=== PATIENT | male | born 1955 | race Caucasian/White ===

== ENCOUNTER → 2023-06-30 | Outpatient (CLI) | payer MEDICARE, BC ==
--- NOTE | 2023-06-30 14:59 | MR ---
EXAMINATION TYPE: MR Prostate wo/w con DATE OF EXAM: 06/30/2023 10:01 AM COMPARISON: None. CLINICAL INDICATION:Male, 68 years old with history of C61 prostate ca; Prostate cancer. TECHNIQUE: Multi-planar, multi-sequence imaging of the pelvis is performed prior to and following the uncomplicated administration of bolus intravenous gadolinium. CONTRAST: 11 Gadavist Interpretive Criteria: PI-RADS v2.1 SERUM PSA: 2.9 on 08/28/2015. SURGICAL PATHOLOGY: 10/31/2015 FINDINGS: Prostatic dimensions: 5.5 x 6.1 x 4.7 cm. Ellipsoid Volume:82.56 (PSA density=0.04 ng/mL/mL) CENTRAL GLAND (Central and Transition Zones/CZ+TZ): Multiple bilateral, heterogenous appearing hypertrophic stromal nodules, without suspicious lesion. M edian lobe hypertrophy with protrusion into the base of the bladder. (PI-RADS 2) PERIPHERAL ZONE (PZ): Bilateral linear, indistinct wedgelike areas of low ADC, and low T2 signal, No evidence of masslike a bnormality, or localized perfusional hypervascularity, to further suggest a focus of clinically signi ficant prostate cancer. (PI-RADS 2) SEMINAL VESICLES (SV): Symmetric and unremarkable. PERIPROSTATIC TISSUES: Unremarkable. LYMPH NODES: No enlarged pelvic lymph node. REMAINING PELVIS: Bladder wall is within normal limits given distention. No abnormal free or organized intrapelvic fluid collection. No pathologic bowel dilation or mural thickening. Bilateral fat containing inguinal hernias. Hernia repair mesh noted anterior to the bladder. OSSEOUS STRUCTURES: No suspicious osseous abnormality. IMPRESSION: 1. No specific features for high-risk prostate cancer. Maximum PI-RADS score: 2. 2. Substantial BPH, estimated gland volume 82.56 mL. 3. No suspicious osseous lesion. No lymphadenopathy. No evidence of prostate adenocarcinoma involving the periprostatic tissues.
== END | disposition home or self-care (01) ==
LOC: RADMRIMAIN 08:29
PROVIDERS: ATTEND Urology
DX: C61 Malignant neoplasm of prostate (principal); N40.0 Benign prostatic hyperplasia without lower urinary tract symptoms
CPT/HCPCS: 72197; A9585

== ENCOUNTER → 2024-05-18 | Outpatient (CLI) | payer MEDICARE, BC ==
[2024-05-18 10:45] LABS: African American GFR (CKD) >90 (>60 ml/min/1.73 sqM); Blood Urea Nitrogen 15 mg/dL (9-20); Non-African American GFR(CKD) 89 (>60 ml/min/1.73 sqM)
--- NOTE | 2024-05-18 13:51 | CT ---
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 TECHNIQUE: CT scan of the neck is performed with IV Contrast, patient injected with 100 ml mL of Iso arvind 300, axial images are obtained, coronal and sagittal reformatted images are reviewed. CT DLP: 705 mGycm. Automated Exposure Control for Dose Reduction was Utilized. FINDINGS: Airway: No gross abnormality seen. Parotid/submandibular glands: No gross abnormality seen. Carotid/Vascular Structures: Mild peripheral calcified plaque left carotid bulb. Osseous Structures: Moderate displaced narrowing at C4-C5 through C6-C7 levels. Loss of normal cervic al curvature. Mandible appears intact. Temporomandibular joints are maintained bilaterally. No suspicious focal lyt ic or sclerotic osseous lesion identified. Lack of dentition particularly along the right lateral asp ect is noted. Multiple cavitary fillings and crowns, streak artifact somewhat limiting evaluation at this level. Other: No suspicious neck adenopathy. Tiny 7 mm mucous retention cyst or polyp in the inferior right maxillary sinus. Paranasal sinuses are otherwise grossly clear. A few scattered subcentimeter neck ly mph nodes are present bilaterally. IMPRESSION: No suspicious mass or adenopathy. [facility], , 05/18/2024 1:48 PM
== END | disposition home or self-care (01) ==
LOC: RADCTMAIN 09:49
PROVIDERS: ATTEND Dentist
DX: D16.5 Benign neoplasm of lower jaw bone (principal)
CPT/HCPCS: 82565; 84520; 70491; 36415; Q9967

== ENCOUNTER → 2024-08-27 | Outpatient (CLI) | payer MEDICARE, BC ==
--- NOTE | 2024-08-27 10:05 | MR ---
EXAMINATION TYPE: MR Prostate wo/w con DATE OF EXAM: 08/27/2024 8:30 AM COMPARISON: MRI 06/30/2023. CLINICAL INDICATION: Male, 69 years old with history of c61 malignant neoplasm of prostate; F/U prost ate cancer. TECHNIQUE: Multi-planar, multi-sequence imaging of the pelvis is performed prior to and following the uncomplicated administration of bolus intravenous gadolinium. IV Contrast: 9.5 mL Gadobutrol Interpretive Criteria: PI-RADS v2.1 SERUM PSA: no recent PSA provided. 11-26-17 = 2.9 08-28-15 = 2.9 SURGICAL PATHOLOGY: 10/31/2015 positive FINDINGS: Prostatic dimensions: 5.4 x 6.2 x 4.7 cm. Ellipsoid Volume:82.39 CENTRAL GLAND (Central and Transition Zones/CZ+TZ): Multiple bilateral, heterogenous appearing hypertrophic stromal nodules, without suspicious lesion. M edian lobe hypertrophy with protrusion into the base of the bladder. (PI-RADS 2) PERIPHERAL ZONE (PZ): Stable left peripheral low T2 signal area back to 2022 measuring 6 x 3 mm. Bilateral linear, indistin ct wedgelike areas of low ADC, and low T2 signal, No evidence of masslike abnormality, or localized p erfusional hypervascularity, to further suggest a focus of clinically significant prostate cancer. (P I-RADS 2) SEMINAL VESICLES (SV): Symmetric and unremarkable. PERIPROSTATIC TISSUES: Unremarkable. LYMPH NODES: No enlarged pelvic lymph node. REMAINING PELVIS: Bladder wall is within normal limits given distention. No abnormal free or organized intrapelvic fluid collection. No pathologic bowel dilation or mural thickening. No hernia visualized Surgical mesh repair changes anterior bladder. Bilateral fatty inguinal changes. OSSEOUS STRUCTURES: No suspicious osseous abnormality. IMPRESSION: 1. No specific features for high-risk prostate cancer. Maximum PI-RADS score: 2. 2. Substantial BPH, estimated gland volume 82 mL. Current PSA recommended for PSA density. 3. No suspicious osseous lesion. No lymphadenopathy. No evidence of prostate adenocarcinoma involving the periprostatic tissues. [facility], , 08/27/2024 10:03 AM
== END | disposition home or self-care (01) ==
LOC: RADMRIMAIN 07:16
PROVIDERS: ATTEND Surgery
DX: C61 Malignant neoplasm of prostate (principal); N40.0 Benign prostatic hyperplasia without lower urinary tract symptoms
CPT/HCPCS: 72197; A9585